=== PATIENT | female | born 1980 | race Caucasian/White ===

== ENCOUNTER 2018-01-02 23:58 | Emergency (ER) | payer OTHER | END 2018-01-03 01:46 | disposition home or self-care (01) | LOC: FTE 23:58 | DX: N64.4 Mastodynia (principal) | CPT/HCPCS: 99283 ==

== ENCOUNTER 2018-08-23 20:31 | Emergency (ER) | payer SELFPAY, OTHER | END 2018-08-24 00:21 | disposition left against medical advice (07) | LOC: FTE 20:31 | DX: Z53.21 Procedure and treatment not carried out due to patient leaving prior to being seen by health care provider (principal) ==